=== PATIENT | male | born 1985 | race Caucasian/White ===

== ENCOUNTER 2021-06-12 14:51 | Observation (INO) | payer BC ==
[~2021-06-12] VITALS: Ht 190.5 cm; Wt 135.0 kg
[~2021-06-12 14:51] MED LIST: BACTRIM DS 8001 TAB PO; CEPHALEXIN500 M1 PO; EFFEXOR25 M1 PO; LORTAB 5/500 501 TAB PO; NO HOME MEDICATIONS; PHENERGAN 25 TA25 MG PO
--- NOTE | 2021-06-12 17:00 | NUR ---
Pt arrived to admissions and was escorted up to room 317 via wheelchair at this time. Oriented pt and visitor to room. Med rec and SDC assessment completed. notified of pt's arrival and states he "will see him in the OR" within the next hour. Pt updated. Left flank pain 6/10 at this time but pt reports this is tolerable. Continuing to monitor.
[2021-06-12] MEDS ORDERED: NAPROSYN 2250 MG/TAB PO (17:05)
[2021-06-12 17:33] VITALS: BP 125/73; PULSE 81; TEMP 98.3
--- NOTE | 2021-06-12 19:28 | NUR ---
IV fluids hung. Changed into gown. Consent signed. To OR via bed.
[2021-06-12 21:05] VITALS: BP 138/81; PULSE 77; TEMP 97.8
--- NOTE | 2021-06-12 21:05 | NUR ---
Arrived to room 317 via bed. Post op vitals initiated and WNL. Plan of care discussed for discharge criteria-voiding, tolerating PO without N/V, VS stable. Verbalizes understanding. Fluids provided. Denies needs. Call light in reach. Will monitor.
[2021-06-12 21:20] VITALS: BP 152/75; PULSE 74
[2021-06-12 21:35] VITALS: BP 139/87; PULSE 76
--- NOTE | 2021-06-12 21:47 | NUR ---
No longer requiring oxygen. Tolerating PO. VS remain stable. Rating pain 6/10 to groin-described as throbbing. Hydrocodone two tabs given per dr order. Will monitor.
[2021-06-12 21:50] VITALS: BP 142/80; PULSE 75; TEMP 98
[2021-06-12 22:20] VITALS: BP 136/78; PULSE 77; TEMP 98
--- NOTE | 2021-06-12 22:25 | NUR ---
Discharge criteria met. Voioded without difficulty. tolerating PO. VS stable. INT to left hand [id number] intact. Discharge instructions given both verbal and handwritten. Instructed to call for F/U appt with Dr. Aponte on tuesday. Verbalizes understanding. Escorted off floor via wheelchair by staff and friend in stable condition.
== END 2021-06-12 22:27 | disposition home or self-care (01) ==
LOC: MEDICAL 14:51
PROVIDERS: ADMIT Urology
DX: N13.5 Crossing vessel and stricture of ureter without hydronephrosis (principal); Q63.1 Lobulated, fused and horseshoe kidney; F17.210 Nicotine dependence, cigarettes, uncomplicated; F32.9 Major depressive disorder, single episode, unspecified; F41.9 Anxiety disorder, unspecified; Z79.899 Other long term (current) drug therapy; G89.29 Other chronic pain
CPT/HCPCS: C1769; C2617; G0378; J0690; J2270; J2405; J2704; Q9967